=== PATIENT | female | born 1950 | race Caucasian/White ===

== ENCOUNTER 2017-05-14 08:31 | Emergency (ER) | payer SELFPAY ==
[~2017-05-14] VITALS: Ht 157.5 cm; Wt 65.9 kg
[2017-05-14 08:37] VITALS: Ht 157.5 cm; Wt 65.9 kg
[2017-05-14] MEDS ORDERED: ONDANSETRON 4 MG INJ IV STA (09:31)
[2017-05-14] MEDS ORDERED: morphine 4 MG/ML VIAL IV STA (09:31)
--- NOTE | 2017-05-14 10:15 | RADRPT ---
PROCEDURE: CT Brain without contrast. CLINICAL INDICATION: Pain, headache TECHNIQUE: Routine CT scan of the brain was performed on a high resolution multi detector scanner without intravenous contrast. One or more of the following dose reduction techniques were used: Auto mated exposure control; Adjustment of the mA and/or kV according to patient size; Use of iterative r econstruction technique. CTDI = 44 mGy. DLP = 720 mGy-cm. DICOM images are available. COMPARISON: No prior relevant examinations are available for comparison. FINDINGS: Hemorrhage: No evidence of intracranial hemorrhage. Acute ischemic changes: No evidence of acute ischemic changes. Mass effect: None. Parenchymal volume: Within normal limits for age. Ventricular system: Concordant with parenchymal volume. Chronic changes: There are multiple areas of low attenuation change within the supratentorial white matter most compatible with moderate chronic microvascular ischemic changes. Atherosclerotic calcifications of the cavernous portions of both internal carotid arteries are prese nt. Extracranial soft tissues: Unremarkable. Calvarium: No fractures. Paranasal sinuses: Visualized paranasal sinuses are clear. Mastoid air cells: Visualized mastoid air cells are clear. IMPRESSION: No acute intracranial abnormalities. Moderate chronic-appearing microvascular ischemic changes of the supratentorial white matter. RPTAT: AADD .Luiz Dial MD, MD Date Time Electronically viewed and signed by .Luiz Dial MD, MD on 05/14/2017 10:15 .B/
--- NOTE | 2017-05-14 10:16 | ERD ---
ER Documentation Chief Complaint Chief Complaint Complains of back and neck pain x 3 days HPI This is a 66-year-old female. She speaks Tagalog and I have an railroad auditor at the bedside. The patient has a history of hypertension, atrial fibrillation and is on Coumadin. The patient has multiple complaints over approximately 1 week timeframe that are nonspecific. She describes occasional pain at the base of her neck and head that is dull, gradual onset, aching. She occasionally has bilateral upper abdominal discomfort that is cramping. She denies any nausea vomiting or diarrhea. No fevers or chills chest pain or shortness of breath, no pain to the middle of her back. She also describes some mild numbness and tingling to her fingers bilaterally. ROS All systems reviewed and are negative except as per history of present illness. PMhx/Soc Hx Cardiac Disorders: Yes (HTN) Hx Miscellaneous Medical Probl: Yes (PT ON BLOOD THINNER) Hx Alcohol Use: No Hx Substance Use: No Hx Tobacco Use: No Smoking Status: Never smoker FmHx Family History: No diabetes Physical Exam Vitals Vital Signs Date Time Temp Pulse Resp B/P Pulse Ox O2 Delivery O2 Flow Rate FiO2 05/14/17 08:37 98.0 73 20 202/98 98 Physical Exam General: Well developed, well nourished, no acute distress Head: Normocephalic, atraumatic. Eyes: Pupils equally reactive, EOM intact ENT: Moist mucous membranes Neck: Supple, no lymphadenopathy Respiratory: Lungs clear bilaterally, no distress Cardiovascular: RRR, no murmurs, rubs, or gallops Abdominal: Soft, non-tender, non-distended, no peritoneal signs, negative Costello sign, no tenderness to McBurney's point : Deferred MSK: No edema, no unilateral swelling, 5/5 strength, no pulse deficits Neurologic: Alert and oriented, moving all extremities, normal speech, no focal weakness, no cerebellar signs Skin: No rash Psych: Normal mood Result Diagram: 05/14/1756 05/14/1756 Results 24 hrs Laboratory Tests Test 05/14/17 09:40 05/14/17 09:56 Urine Color YELLOW Urine Clarity CLEAR Urine pH 6.0 Urine Specific [place] 1.009 Urine Ketones NEGATIVEmg/dL Urine Nitrite NEGATIVEmg/dL Urine Bilirubin NEGATIVEmg/dL Urine Urobilinogen NEGATIVEmg/dL Urine Leukocyte Esterase 2+Ulysses/ul Urine Microscopic RBC 2/HPF Urine Microscopic WBC 5/HPF Urine Squamous Epithelial Cells MODERATE/HPF Urine Hemoglobin 1+mg/dL Urine Glucose NEGATIVEmg/dL Urine Total Protein NEGATIVEmg/dl White Blood Count 5.610^3/ul Red Blood Count 4.3410^6/ul Hemoglobin 13.6g/dl Hematocrit 41.9% Mean Corpuscular Volume 96.5fl Mean Corpuscular Hemoglobin 31.3pg Mean Corpuscular Hemoglobin Concent 32.5g/dl Red Cell Distribution Width 11.9% Platelet Count 56247^3/UL Mean Platelet Volume 12.1fl Neutrophils % 59.3% Lymphocytes % 28.6% Monocytes % 10.1% Eosinophils % 1.1% Basophils % 0.5% Nucleated Red Blood Cells % 0.0/100WBC Neutrophils # 3.310^3/ul Lymphocytes # 1.610^3/ul Monocytes # 0.610^3/ul Eosinophils # 0.110^3/ul Basophils # 0.010^3/ul Nucleated Red Blood Cells # 0.010^3/ul Sodium Level 142mmol/L Potassium Level 3.9mmol/L Chloride Level 103mmol/L Carbon Dioxide Level 30mmol/L Anion Gap 13 Blood Urea Nitrogen 17mg/dl Creatinine 0.76mg/dl Glucose Level 90mg/dl Calcium Level 9.0mg/dl Total Bilirubin 0.9mg/dl Direct Bilirubin 0.00mg/dl Indirect Bilirubin 0.9mg/dl Aspartate Amino Transf (AST/SGOT) 35IU/L Alanine Aminotransferase (ALT/SGPT) 53IU/L Alkaline Phosphatase 140IU/L Troponin I < 0.012ng/ml Total Protein 7.2g/dl Albumin 4.0g/dl Globulin 3.20g/dl Albumin/Globulin Ratio 1.25 Lipase 102U/L Current Medications Medications (Trade) Dose Ordered Sig/Mayank Route PRN Reason Start Time Stop Time Status Last Admin Dose Admin Morphine Sulfate (morphine) 4 mg ONCE STAT IV 05/14/17 09:31 05/14/17 09:35 DC Ondansetron HCl (Zofran Inj) 4 mg ONCE STAT IV 05/14/17 09:31 05/14/17 09:35 DC Procedures/MDM EKG, MONITORS, & DIAGNOSTIC IMAGING: EKG: I reviewed and interpreted a 12-lead EKG. Rhythm: Normal sinus rhythm Ectopy: None Intervals: No abnormalities ST segments: No elevations or depressions T waves: No contiguous inversions Chest x-ray: I reviewed and interpreted a 1 view of the chest Mediastinum: No enlargement Cardiac silhouette: No cardiomegaly Airspace: Clear lung boyd bilaterally without evidence of pneumothorax Bones: No evidence of fracture CT brain: No evidence of acute intracranial process LAB INTERPRETATION: Nonspecific slight thrombocytopenia without evidence of renal insufficiency or other cell line dysfunction. Normal troponin MEDICAL DECISION MAKING: The patient is very nonspecific findings. She does however have significant elevated blood pressure despite compliance with medications. Given her anticoagulant therapy CT imaging of the brain would be appropriate. Her symptoms seem to be subacute in onset for approximately 1 week. She is a benign abdominal exam with low pretest probability for acute intra-abdominal process. While the patient is hypertensive she has no migratory pain and no pain at suggestive of acute onset or aortic process such as dissection. I will treat the patient is hypertensive urgency and evaluate the patient for endorgan dysfunction including laboratory testing, EKG, troponin, CT imaging of the brain. Pain control will be provided. ER COURSE: The patient is resting comfortably and received pain medication. Her blood pressure trended down without intervention. The patient states that she does not have a local primary care physician and local resources were provided for local clinics. At this point the patient is safe for discharge. I did discuss primary care follow-up, return precautions including worsening symptoms. The patient states understanding and feels comfortable with the plan. I kept the patient and/or family informed of laboratory and diagnostic imaging results throughout the emergency room course. DISPOSITION PLAN: We discussed follow up with the patient's primary care doctor within 24 to 48 hours as needed. We also discussed return to the emergency room for worsening symptoms or worsening condition. Outpatient referral: [None required] Discharge Medications: None required Departure Diagnosis: Primary Impression: Hypertensive urgency Additional Impression: Thrombocytopenia Condition: Stable KRISTIE CRAFT MD May 14, 2017 10:16
--- NOTE | 2017-05-14 10:18 | RADRPT ---
PROCEDURE: XR Chest. CLINICAL INDICATION: Shortness of breath TECHNIQUE: Single portable view of the chest was obtained COMPARISON: No priors for comparison FINDINGS: The trachea is midline. The cardiac silhouette and pulmonary vascularity are within normal limits. T he lungs are clear. The costophrenic angles are sharp. IMPRESSION: 1. No evidence of acute cardiopulmonary disease. RPTAT: AAPP Physician Huber Date Time Electronically viewed and signed by Vijaya Rubio Physician on 05/14/2017 10:18 JL/
[2017-05-14 10:47] LABS: BASOPHILS % 0.5 % (0.0-2.0); EOSINOPHILS # 0.1 10^3/ul (0.0-0.5); EOSINOPHILS % 1.1 % (0.0-7.0); HEMATOCRIT 41.9 % (37.0-47.0); HEMOGLOBIN 13.6 g/dl (12.0-16.0); LYMPHOCYTES # 1.6 10^3/ul (0.8-2.9); LYMPHOCYTES % 28.6 % (15.0-51.0); MEAN CORPUSCULAR HEMOGLOBIN 31.3 pg (29.0-33.0); MEAN CORPUSCULAR HGB CONC 32.5 g/dl (32.0-37.0); MEAN CORPUSCULAR VOLUME 96.5 fl (82.0-101.0); MEAN PLATELET VOLUME 12.1 fl (7.4-10.4); MONOCYTE # 0.6 10^3/ul (0.3-0.9); MONOCYTES % 10.1 % (0.0-11.0); NEUTROPHIL # 3.3 10^3/ul (1.6-7.5); NEUTROPHILS % 59.3 % (39.0-77.0); PLATELET COUNT 128 10^3/UL (140-415); RED BLOOD COUNT 4.34 10^6/ul (4.20-5.40); RED CELL DISTRIBUTION WIDTH 11.9 % (11.5-14.5); WHITE BLOOD COUNT 5.6 10^3/ul (4.8-10.8)
[2017-05-14 10:53] LABS: ADD UMIC YES; UR ASCORBIC ACID NEGATIVE (NEGATIVE); UR BILIRUBIN (Dip) NEGATIVE (NEGATIVE); UR BLOOD (Dip) 1+ mg/dL (NEGATIVE); UR CLARITY CLEAR (CLEAR); UR COLOR YELLOW (YELLOW); UR GLUCOSE (Dip) NEGATIVE (NEGATIVE); UR KETONES (Dip) NEGATIVE (NEGATIVE); UR LEUKOCYTE ESTERASE (Dip) 2+ Leu/ul (NEGATIVE); UR NITRITE (Dip) NEGATIVE (NEGATIVE); UR NONSQUAMOUS EPITHELIAL CELL 1 /HPF (NONE SEEN); UR RBC 2 /HPF (0-5); UR SPECIFIC GRAVITY (Dip) 1.009 (1.003-1.030); UR SQUAMOUS EPITHELIAL CELL MODERATE /HPF (FEW); UR TOTAL PROTEIN (Dip) NEGATIVE (NEGATIVE); UR UROBILINOGEN (Dip) NEGATIVE (NEGATIVE)
[2017-05-14 11:08] LABS: ALANINE AMINOTRANSFERASE 53 IU/L (13-69); ALBUMIN/GLOBULIN RATIO 1.25; ALKALINE PHOSPHATASE 140 IU/L (42-121); ANION GAP 13 (8-16); ASPARTATE AMINO TRANSFERASE 35 IU/L (15-46); BILIRUBIN,INDIRECT 0.9 mg/dl (0-1.1); BILIRUBIN,TOTAL 0.9 mg/dl (0.2-1.3); BLOOD UREA NITROGEN 17 mg/dl (7-20); CARBON DIOXIDE 30 mmol/L (21-31); CHLORIDE 103 mmol/L (97-110); CREATININE 0.76 mg/dl (0.44-1.00); GLUCOSE 90 mg/dl (70-220); POTASSIUM 3.9 mmol/L (3.5-5.1); SODIUM 142 mmol/L (135-144); TOTAL PROTEIN 7.2 g/dl (6.1-8.1)
[2017-05-14 11:22] LABS: TROPONIN-I < 0.012 ng/ml (0.00-0.12)
[2017-05-14 12:13] LABS: INR 0.94; PROTIME 12.7 Sec (11.9-14.9)
[2017-05-14 12:14] LABS: PARTIAL THROMBOPLASTIN TIME 26.5 Sec (25.0-35.0)
[2017-05-14 12:53] VITALS: BP 145/76; PULSE 56; RESP 17; TEMP 97.5
== END 2017-05-14 12:54 | disposition home or self-care (01) ==
LOC: E/R 08:31
DX: I16.0 Hypertensive urgency (principal); D69.6 Thrombocytopenia, unspecified; I10 Essential (primary) hypertension; Z79.01 Long term (current) use of anticoagulants
CPT/HCPCS: 36415; 70450; 71010; 80053; 81001; 83690; 84484; 85025; 85610; 85730; 93005

== ENCOUNTER 2017-08-01 07:17 | Emergency (ER) | END 2017-08-01 13:35 | disposition home or self-care (01) ==

== ENCOUNTER 2018-01-04 02:11 | Observation (INO) | END 2018-01-05 21:15 | disposition home or self-care (01) ==